=== PATIENT | female | born 2000 | race Caucasian/White ===

== ENCOUNTER 2024-07-27 14:48 | Emergency (ER) | payer BC, MEDICAID, SELFPAY ==
[2024-07-27 14:50] VITALS: BMI 21.0
[2024-07-27 15:05] VITALS: BP 121/79; PULSE 75; RESP 16; TEMP 36.9; O2SAT 97
--- NOTE | 2024-07-27 15:07 | PD.EDFMALE ---
ED Female Urogenital RME/HPI General Chief complaint: Urogenital-Female Stated complaint: R/O UTI: abd. pain, Nausea, frequent urination Time Seen by Provider: 07/27/24 14:53 Source: patient Arrival date/time: 07/27/24 14:48 24-year-old female with no known medical history presents to the emergency room with a chief complaint of burning with urination as well as frequent urination x 3 days Mode of arrival: ambulatory Limitations: no limitations Related Data Previous Rx's ?Medication ?Instructions ?Recorded ferrous sulfate 325 mg (65 mg 325 mg PO QDAY #60 tabs 10/25/21 iron) tablet vitamin#30 30 mg iron-10 1 cap PO DAILY #30 caps 10/25/21 mg iron-folic acid 1 mg-omg3 capsule amoxicillin 875 mg-potassium 1 tab PO Q12H #10 tabs 06/15/22 clavulanate 125 mg tablet ibuprofen 600 mg tablet 600 mg PO Q6H PRN pain #20 tabs 06/15/22 phenazopyridine 100 mg tablet 100 mg PO TID PRN pain 6 doses #30 08/28/23 (Pyridium) tabs nitrofurantoin 100 mg PO Q12H 5 days #10 caps 07/27/24 monohydrate/macrocrystals 100 mg capsule (Macrobid) Allergies Allergy/AdvReac Type Severity Reaction Status Date / Time No Known Allergies Allergy Verified 03/15/24 21:26 Review of Systems Review of Systems Systems Reviewed: All systems reviewed, normal except as documented Constitutional Constitutional: Reports system reviewed and no additional complaints, except as documented, Denies fatigue, Denies fever(s), Denies headache(s) and Denies weakness Eyes Eyes: Reports system reviewed and no additional complaints, except as documented, Denies blurry vision and Denies change in vision ENT Ears, Nose, Mouth, and Throat: Reports system reviewed and no additional complaints, except as documented, Denies otalgia, Denies headache(s), Denies nasal congestion, Denies throat swelling and Denies vertigo Cardiovascular Cardiovascular: Reports system reviewed and no additional complaints, except as documented, Denies chest pain, Denies dyspnea and Denies dyspnea on exertion Respiratory Respiratory: Reports system reviewed and no additional complaints, except as documented, Denies chest congestion, Denies cough, Denies dyspnea, Denies dyspnea on exertion and Denies wheezing Gastrointestinal Gastrointestinal: Reports system reviewed and no additional complaints, except as documented, Denies abdominal pain, Reports cramping, Reports nausea and Denies vomiting Genitourinary Genitourinary: Reports system reviewed and no additional complaints, except as documented Musculoskeletal Musculoskeletal: Reports system reviewed and no additional complaints, except as documented and Denies back pain Integumentary/Breasts Skin/Breast: Reports system reviewed and no additional complaints, except as documented and Denies wounds Neurologic Neurologic: Reports system reviewed and no additional complaints, except as documented, Denies confusion, Denies headache(s), Denies lack of coordination, Denies vertigo and Denies weakness Psychiatric Psychiatric: Reports system reviewed and no additional complaints, except as documented, Denies anxiety, Denies confusion, Denies depression, Denies paranoia, Denies suicidal ideation and Denies tactile hallucinations Endocrine Endocrine: Reports system reviewed and no additional complaints, except as documented and Denies fatigue Hematologic/Lymphatic Hematologic/Lymphatic: Reports system reviewed and no additional complaints, except as documented and Denies lymphadenopathy Allergic/Immunologic Allergic/Immunologic: Reports system reviewed and no additional complaints, except as documented, Denies throat swelling, Denies urticaria and Denies wheezing ED Exam General Limitations: Present no limitations General appearance: Present alert and in no apparent distress Head Head exam: Present atraumatic Eye Eye exam: Present normal appearance, PERRL and EOMI ENT ENT exam: Present normal exam, normal oropharynx and mucous membranes moist Neck Neck exam: Present normal inspection, full ROM and trachea midline Chest Chest inspection: Present normal inspection and symmetric chest wall rise Respiratory Respiratory exam: Present normal lung sounds bilaterally Cardiovascular Cardiovascular exam: Present regular rate, normal rhythm and normal heart sounds Abdominal Exam Abdominal exam: Present soft and normal bowel sounds Abdominal tenderness: Present suprapubic and mild Extremities Exam Extremities exam: Present normal inspection and full ROM Back Exam Back exam: Present normal inspection and full ROM Neurological Exam Neurological exam: Present alert, oriented X3 and CN II-XII intact Psychiatric Psychiatric exam: Present normal affect and normal mood Skin Skin exam: Present warm, dry, intact and normal color Course Quality Measures none Orders Category Date Time Status UA, C/S IF [Urinalysis, C/S if Indicated] Stat Lab 07/27/24 15:14 Completed Vital Signs Vital signs: Vital Signs Temperature 98.4 F 07/27/24 15:05 Pulse Rate 75 07/27/24 15:05 Respiratory Rate 16 07/27/24 15:05 Blood Pressure 121/79 07/27/24 15:05 Pulse Oximetry (%) 97 07/27/24 15:05 Oxygen Delivery Method Room Air 07/27/24 15:05 O2 saturation 97% within normal limits Urogenital - Female MDM Narrative MDM Narrative:: 24-year-old female with no known medical history presents to the emergency room with a chief complaint of burning with urination as well as frequent urination x 3 days Patient is hemodynamically stable and in no apparent distress Physical examination shows some mild cramping to the lower abdominal area. Urinalysis was positive for urinary tract infection Antibiotics are sent to the patient's pharmacy. Patient was discharged and educated to follow-up with primary care provider in the next 24 to 48 hours and return to the emergency room for any evidence of worsening signs or symptoms Patient data External records reviewed:: [facility] previous records Clinical information provided by:: patient Social determinants that could affect healthcare access:: none Patient has the following chronic illnesses:: No chronic illness How is presenting disease/condition affected by chronic disease/condition?: no chronic disease Evaluation data The following diagnostics were reviewed and interpreted by me:: lab results and radiology exam(s) Lab and/or radiology exams considered but not ordered:: Labs and radiology exams considered and ordered Interpretation Summary: N/A Medications / Prescriptions Medications or Prescriptions considered but not ordered:: Medication given Medication administrations:: Medication not given Consultations Consultation(s) initiated? (list below): No Diagnosis Urogenital Female Differential Diagnosis: urinary tract infection, bacterial vaginosis, vaginitis and cystitis Most likely diagnosis given after review of the tests above:: Urinary tract infection Admission Indicated Admission indicated?: not indicated Admission Request Was there a request for admission?: No Disposition Plan Disposition Plan: Discharge Discharge Attestation Discharge Attestation: The patient and all family members were given an opportunity to ask questions and understood the discharge instructions. Discharge instructions specifically effects, indications for sooner follow up or return to the emergency department, and the expected course of current diagnosis. Patient condition: Stable Discharge Plan Plan Patient Disposition: HOME (Self Care) Disposition Comment: Stable Prescriptions/Referrals Prescriptions/Med Rec: New nitrofurantoin monohyd/m-cryst [Macrobid] 100 mg capsule 100 mg PO Q12H 5 Days Qty: 10 0RF Rx Instructions: must administer with a meal/food No Action ferrous sulfate 325 mg (65 mg iron) tablet 325 mg PO QDAY Qty: 60 0RF PNV #[id number] acid-[id number] 30 mg iron-10 mg iron-1 mg capsule 1 cap PO DAILY Qty: 30 0RF amoxicillin-pot clavulanate 875-125 mg tablet 1 tab PO Q12H Qty: 10 0RF ibuprofen 600 mg tablet 600 mg PO Q6H PRN (Reason: pain) Qty: 20 0RF phenazopyridine [Pyridium] 100 mg tablet 100 mg PO TID PRN (Reason: pain) Qty: 30 0RF Referrals: No Primary/Family,Physician [Primary Care Provider] - In 1 week Problem List Clinical Impression: Urinary tract infection Patient/Caregiver Discharge Instructions Education Materials: ED CYSTITIS Female Adult Additional Instructions: Please follow-up with your primary care provider in the next 24 to 48 hours Your urinalysis was positive for urinary tract infection. Antibiotics are sent to your pharmacy please pick them up and take them as indicated. For any evidence of worsening signs or symptoms return to the emergency room immediately Print Language: [place] Islander Stand Alone Forms: Barbra Award Info., Work/School Release, Patient Portal Info Letter PA/LUZ ELENA Supervising Physician SERA/LUZ ELENA Supervising Physician: Dr. Swift
[2024-07-27 15:23] LABS: Collection Type, Urine Clean Catch
[2024-07-27 15:46] LABS: Bacteria,Urine 4+; Bilirubin,Urine Negative (Negative); Blood,Urine Trace (Negative); Clarity,Urine Turbid (Clear/Hazy); Color,Urine Yellow (Lt Yel-Yel); Culture Indicated,Urine Contaminated; Glucose, Urine Negative (Negative); Ketones,Urine Negative (Negative); Leukocyte Esterase,Urine Positive (Negative); Nitrite,Urine Negative (Negative); Protein,Urine Trace (Neg - Trace); RBC,Urine 8 /hpf (0-3); Specific Gravity,Urine 1.026 (1.001-1.035); Squamous Epithelial Cell,Urine 27 /hpf (0-5); Urobilinogen,Urine Negative mg/dL (0.0-1.0); WBC,Urine 27 /hpf (0-5)
== END 2024-07-27 16:35 | disposition home or self-care (01) ==
PROVIDERS: Nurse Practitioner Family; Emergency Provider Emergency Medicine
DX: N39.0 Urinary tract infection, site not specified (principal)
CPT/HCPCS: 81001; 99283

== ENCOUNTER 2024-08-03 16:36 | Emergency (ER) | payer BC, MEDICAID, SELFPAY ==
[2024-08-03] VITALS (7 sets, daily range): BP systolic 117–147; BP diastolic 67–89; PULSE 94–120; RESP 12–22; TEMP 36.6–37.2; O2SAT 100
--- NOTE | 2024-08-03 17:12 | EKG_ITS ---
[facility] Test Date: 2024-08-03 Pat Name: IKER NAQVI Department: Room: - Gender: Female Weight Shifter: : 2000 Requested By: Valerio Chapman Order Number: [id number] Reading MD: Valerio Chapman Measurements Intervals [place] Rate: 112 P: 83 NC: 138 QRS: 58 QRSD: 82 T: 56 QT: 320 QTc: 437 Interpretive Statements SINUS TACHYCARDIA LOW QRS VOLTAGE IN PRECORDIAL LEADS [QRS DEFLECTION < 1.0 mV IN CHEST LEADS] ABNORMAL RHYTHM ECG No previous ECG available for comparison /store/S0/[id number]
--- NOTE | 2024-08-03 17:20 | PD.EDRME ---
Rapid Medical Screening Exam RME Arrival date/time: 08/03/24 16:36 24-year-old female with a history of iron deficiency anemia presents to the emergency room with a chief complaint of dizziness, palpitations x 1 day I have greeted and performed a focused initial assessment of this patient. A comprehensive ED assessment and evaluation of the patient, analysis of all test results, and completion of the medical decision making process will be conducted by additional ED providers. Chief Complaint: Dizziness Time Seen by Provider: 08/03/24 16:56 Vital signs: Vital Signs Temperature 98.5 F 08/03/24 17:01 Pulse Rate 120 H 08/03/24 17:01 Respiratory Rate 18 08/03/24 17:01 Blood Pressure 143/80 H 08/03/24 17:01 Pulse Oximetry (%) 100 08/03/24 17:01 Oxygen Delivery Method Room Air 08/03/24 17:01 Vital signs reviewed by provider: Yes
[2024-08-03 17:55] LABS: Basophils # (Auto) 0.1 Thou/mm3 (0.0-0.2); Basophils % (Auto) 1 % (0-2.5); Eosinophils % (Auto) 0 % (0-10); Hematocrit 25.4 % (36.0-46.0); Immature Granulocytes % (Auto) 0 % (0-0); Immature Granulocytes Auto 0.04 Thou/mm3 (0.00-0.00); Lymphocytes # (Auto) 1.5 Thou/mm3 (1.0-4.8); Lymphocytes % (Auto) 12 % (10-50); Mean Corpuscular Hemoglobin 15.5 pg (25.0-35.0); Mean Corpuscular Volume 60 fL (80-100); Monocytes # (Auto) 0.3 Thou/mm3 (0.0-0.8); Monocytes % (Auto) 3 % (0-12); Neutrophils # (Auto) 10.5 Thou/mm3 (1.8-7.7); Neutrophils % (Auto) 84 % (37-80); Nucleated Red Blood Cell % 0 /100 WBC (0); Platelet Count 469 Thou/mm3 (140-440); RDW Standard Deviation 45.3 fL (36.4-46.3); Red Blood Count 4.26 Miln/mm3 (4.00-5.20); White Blood Count 12.4 Thou/mm3 (3.6-11.0)
[2024-08-03 17:56] LABS: Hemoglobin 6.6 g/dL (12.0-16.0)
[2024-08-03 18:07] LABS: Partial Thromboplastin Time 22.4 Seconds (22.0-36.0); Prothrombin Time 11.4 Seconds (9.0-12.2)
[2024-08-03 18:14] LABS: Path Review Blood Smear Sent to Pathologist
[2024-08-03 18:22] LABS: Alanine Aminotransferase 10 U/L (10-49); Albumin, Serum 5.2 gm/dL (3.5-5.0); Albumin/Globulin Ratio 1.8 (1.2-2.2); Alkaline Phosphatase 48 U/L (46-116); Anion Gap 11 (7-16); Aspartate Amino Transferase 14 U/L (0-34); BUN/Creatinine Ratio 17 Ratio (12-20); Bilirubin,Total 0.5 mg/dL (0.3-1.2); Blood Urea Nitrogen 10 mg/dL (9-23); Calcium 9.8 mg/dL (8.3-10.6); Calcium (Corrected) 9.8 mg/dL (8.5-10.1); Carbon Dioxide 23.5 mMol/L (20.0-31.0); Chloride 105 mMol/L (98-107); Creatinine (Component) 0.6 mg/dL (0.6-1.3); Globulin 2.9 gm/dL (2.3-3.5); Glucose 98 mg/dL (74-106); Osmolality,Calculated 276 (275-295); Potassium 3.5 mMol/L (3.4-5.1); Sodium 139 mMol/L (136-145); Total Protein 8.1 gm/dL (5.7-8.2); Troponin I < 0.002 ng/mL (0.0-0.045); eGFR > 60 See Note
[2024-08-03 18:43] LABS: B-Type Natriuretic Peptide < 20 pg/mL (0-100)
--- NOTE | 2024-08-03 23:40 | PD.EDDIZZY ---
ED Dizzyness RME/HPI General Chief Complaint: Dizziness Stated Complaint: DIZZY, NAUSEA, BLACKED OUT, BOYER X 2 WKS, HX ANEMIA Time Seen by Provider: 08/03/24 16:56 Arrival date/time: 08/03/24 16:36 RME / HPI RME / HPI Narrative: 08/03/24 16:36 24-year-old female with a history of iron deficiency anemia presents to the emergency room with a chief complaint of dizziness, palpitations x 1 day I have greeted and performed a focused initial assessment of this patient. A comprehensive ED assessment and evaluation of the patient, analysis of all test results, and completion of the medical decision making process will be conducted by additional ED providers. -------- Dr. Lindsey?s Main ED Evaluation: 24yo female with a history of anemia presents to the ED for a chief complaint of dizziness. Patient states she started having nausea after she started taking the nitrofurantoin she was given for a UTI 1 week ago. She states she started her period 3 days ago and started having N/V and dizziness. She states she felt like she was going to pass out today, so she came in for evaluation. She denies any fever, chills, UTI symptoms, sweating or any other associated symptoms. Patient states she has a history of heavy periods. No known allergies. Related Data Previous Rx's ?Medication ?Instructions ?Recorded ferrous sulfate 325 mg (65 mg 325 mg PO QDAY #60 tabs 10/25/21 iron) tablet vitamin#30 30 mg iron-10 1 cap PO DAILY #30 caps 10/25/21 mg iron-folic acid 1 mg-omg3 capsule amoxicillin 875 mg-potassium 1 tab PO Q12H #10 tabs 06/15/22 clavulanate 125 mg tablet ibuprofen 600 mg tablet 600 mg PO Q6H PRN pain #20 tabs 06/15/22 phenazopyridine 100 mg tablet 100 mg PO TID PRN pain 6 doses #30 08/28/23 (Pyridium) tabs Allergies Allergy/AdvReac Type Severity Reaction Status Date / Time No Known Allergies Allergy Verified 08/03/24 16:40 Review of Systems Review of Systems Systems Reviewed: All systems reviewed, normal except as documented Past Medical History Past Medical History NEUROLOGIC: Negative Neurological Disorders or Seizures CARDIAC: Positive Cardiac Disorders and Hypertension ([place] boarderline); Negative Congestive Heart Failure RESPIRATORY: Negative Chronic Obstructive Pulmonary Disease (COPD) GASTROINTESTINAL: Negative Gastrointestinal Disorders GENITOURINARY: Negative Genitourinary Disorders or Renal Disease MUSCULOSKELETAL: Negative Musculoskeletal Disorders ENDOCRINE: Negative Endocrine Disorders, Diabetes Mellitus Type 1 or Diabetes Mellitus Type 2 HEMATOLOGIC: Positive Blood Disorders and Anemia; Negative Clotting Problems PSYCHO/SOCIAL: Positive Anxiety OTHER HISTORY: Positive Blood Transfusions (x1 2020 dizziness. H&H low); Negative Autoimmune Disease, Blood Transfusion Reaction, Anesthesia Reactions, Organ Transplant, Chemotherapy, Hyperbaric Therapy, MRSA, VRSA, Vancomycin-Resistant Enterococci or Cancer Family History FAMILY HISTORY: Negative Family Psychiatric Problems, Family Respiratory Disorders, Family Cardiac Disorders, Family Gastrointestinal Problems, Family Cancer, Family Surgery or Family Anesthesia Reaction Surgical History SURGICAL: Negative Organ Transplant Social History SMOKING STATUS: Never smoker ED Exam Narrative Physical exam: GENERAL APPEARANCE: alert and oriented x 4, well-developed, well-nourished, no acute distress VITALS: All vitals were reviewed and the pulse ox is 100% on room air, which is normal according to my interpretation. HEENT: Normocephalic, atraumatic; pupils equal, round, reactive to light; EOMI; mucous membranes pink, moist; oropharynx clear NECK: Supple LUNGS: CTABL; no wheezes, no rales, no rhonchi HEART: Regular rate, regular rhythm; normal S1, S2; no murmurs ABDOMEN: non distended; normal BS; soft, no tenderness, no guarding, no rebound; no masses, no organomegaly, no hernia BACK: no CVA tenderness EXTREMITIES: atraumatic; no edema NEUROLOGIC: awake; alert and oriented x4; cranial nerves II-XII grossly intact; no focal sensory or motor deficits PSYCHIATRIC: appropriate mood and affect SKIN: warm, dry, pale ; no rashes Course Course Course Narrative: The patient was placed in ED observation care at 08/04/24 at 0115 hours. The patient was placed in ED observation care because of pending blood transfusion. The patients past medical history, social history, and family history were reviewed. 0419: Patient states she feels significantly better after receiving 2U PRBCs and feels comfortable going home. 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 START 00 Care 08/03/24 21:44 Completed Continuous Pulse Oximetry NOW Care 08/03/24 21:44 Completed EKG (ED ONLY) *Do not use* NOW Care 08/03/24 17:12 Completed IV [Insert IV] NOW Care 08/03/24 21:44 Completed Transfuse,blood/blood products NOW Care 08/03/24 21:43 Completed EKG (ED Only) Stat Exams 08/03/24 17:12 Draft BNP [B-Type Natriuretic Peptide] Stat Lab 08/03/24 17:35 Completed CBC Stat Lab 08/03/24 17:35 Completed CMP [Comprehensive Metabolic Panel] Stat Lab 08/03/24 17:35 Completed PT [Prothrombin Time with INR] Stat Lab 08/03/24 17:35 Completed PTT [Partial Thromboplastin Time] Stat Lab 08/03/24 17:35 Completed Path Review Blood Smear Stat Lab 08/03/24 17:35 Completed Troponin I Stat Lab 08/03/24 17:35 Completed Type and Screen Stat Lab 08/03/24 17:35 Completed prbc [Red Blood Cells] Stat Lab 08/03/24 17:35 Completed Reevaluation(s) Reevaluation #1: Patient is currently receiving her second unit of blood and appears better compared to her initial evaluation. Time: 02:59 Vital Signs Vital signs: Vital Signs Temperature 98.5 F 08/03/24 17:01 Pulse Rate 120 H 08/03/24 17:01 Respiratory Rate 18 08/03/24 17:01 Blood Pressure 143/80 H 08/03/24 17:01 Pulse Oximetry (%) 100 08/03/24 17:01 Oxygen Delivery Method Room Air 08/03/24 17:01 Dizziness MDM Narrative MDM Narrative:: Scribe Attestation: 08/03/24 Lala Llanos am scribing for and in the presence of Dr. Lindsey. Patient data External records reviewed:: [facility] previous records (Per chart review, patient was seen here on 07/27/24 for a UTI.) Clinical information provided by:: patient Social determinants that could affect healthcare access:: none Patient has the following chronic illnesses:: none How is presenting disease/condition affected by chronic disease/condition?: no chronic disease Evaluation data The following diagnostics were reviewed and interpreted by me:: lab results and EKG tracing(s) Lab and/or radiology exams considered but not ordered:: none Interpretation Summary: WBC count is elevated at 12.4, HnH is low at 6.6/25.4, PT and INR are normal, PTT is normal, CMP is normal, Troponin is normal, BNP is normal, according to my interpretation. EKG done at 1723, sinus tachycardia, rate of 112, normal axis, no ectopy, no acute ischemia, according to my interpretation. Medications / Prescriptions Medications or Prescriptions considered but not ordered:: none Medication administrations:: 2U PRBCs Consultations Consultation(s) initiated? (list below): No Diagnosis Dizziness Differential Diagnosis: other (anemia due to blood loss, anemia due to blood dyscrasia, hemolytic anemia, sideroblastic anemia) Most likely diagnosis given after review of the tests above:: see clinical impression below Admission Indicated Admission indicated?: not indicated Admission Request Was there a request for admission?: No Disposition Plan Disposition Plan: Discharge Discharge Attestation Discharge Attestation: The patient and all family members were given an opportunity to ask questions and understood the discharge instructions. Discharge instructions specifically effects, indications for sooner follow up or return to the emergency department, and the expected course of current diagnosis. Patient condition: Stable Discharge Plan Plan Patient Disposition: HOME (Self Care) Disposition Comment: stable for discharge home Patient condition on transfer: Stable Prescriptions/Referrals Prescriptions/Med Rec: No Action ferrous sulfate 325 mg (65 mg iron) tablet 325 mg PO QDAY Qty: 60 0RF PNV #[id number] acid-omega3 30 mg iron-10 mg iron-1 mg capsule 1 cap PO DAILY Qty: 30 0RF amoxicillin-pot clavulanate 875-125 mg tablet 1 tab PO Q12H Qty: 10 0RF ibuprofen 600 mg tablet 600 mg PO Q6H PRN (Reason: pain) Qty: 20 0RF phenazopyridine [Pyridium] 100 mg tablet 100 mg PO TID PRN (Reason: pain) Qty: 30 0RF Referrals: Pending Sale To [facility] [Outside] - In 1 week Romario Herrera MD [Physician] - In 1 week Problem List Clinical Impression: Anemia, Menorrhagia Patient/Caregiver Discharge Instructions Discharge Activity: activity as tolerated Education Materials: Anemia, ED Heavy Menstrual Bleeding Additional Instructions: Please return to the emergency department if you have any worsening or any further medical problems and we will help you. Otherwise you should follow-up with primary care doctor within the next several days Please follow-up with your cooking chef within the next several days. Please call the office today and make an appointment Today your hemoglobin was 6.6. You received 2 units of packed red blood cells here in the emergency department. Print Language: Chinese Stand Alone Forms: Barbra Award Info., Patient Portal Info Letter
[2024-08-04 01:25] VITALS: BP 115/73; PULSE 103; RESP 18; TEMP 36.8; O2SAT 100
[2024-08-04 01:55] VITALS: BP 107/66; PULSE 89; RESP 17; TEMP 36.9; O2SAT 100
[2024-08-04 02:10] VITALS: BP 106/60; PULSE 90; RESP 18; TEMP 36.9; O2SAT 99
[2024-08-04 03:45] VITALS: BP 108/69; PULSE 81; RESP 16; TEMP 36.9; O2SAT 100
[2024-08-04 04:26] VITALS: BP 115/61; PULSE 80; RESP 18; TEMP 36.8; O2SAT 98
== END 2024-08-04 04:56 | disposition home or self-care (01) ==
PROVIDERS: Nurse Practitioner Family; Emergency Provider Emergency Medicine; PCP Physician Assistant Medical
DX: D64.9 Anemia, unspecified (principal); N92.0 Excessive and frequent menstruation with regular cycle; R00.0 Tachycardia, unspecified
CPT/HCPCS: 36415; 36430; 80053; 83880; 84484; 85025; 85610; 85730; 86850; 86900; 86901; 86923; 93005; 99285; P9016

== ENCOUNTER 2024-11-28 13:22 | Emergency (ER) | payer BC, MEDICAID, SELFPAY ==
[2024-11-28 13:26] VITALS: BMI 21.7
[2024-11-28 13:34] VITALS: BP 130/69; PULSE 102; RESP 18; TEMP 37.1; O2SAT 99
--- NOTE | 2024-11-28 13:44 | EKG_ITS ---
[facility] Test Date: 2024-11-28 Pat Name: IKER NAQVI Department: Room: - Gender: Female Trader: : 2000 Requested By: Baldomero Khan (HARJIT) Order Number: [id number] Reading MD: Baldomero Khan (SETTLEMENT AGENT) Measurements Intervals [place] Rate: 105 P: 66 AL: 150 QRS: 24 QRSD: 97 T: 54 QT: 321 QTc: 425 Interpretive Statements SINUS TACHYCARDIA LOW QRS VOLTAGE IN PRECORDIAL LEADS [QRS DEFLECTION < 1.0 mV IN CHEST LEADS] ABNORMAL RHYTHM ECG Compared to ECG 08/03/2024 17:23:07 No significant changes /store/S0/[id number]/[id number].pdf
--- NOTE | 2024-11-28 13:44 | XR_ITS ---
Examination: PA lateral chest 2 views Technique: Upright PA lateral chest 2 views Date and time: November 28, 2024 1405 hrs. Indications: Chest pain beginning 2 weeks ago. Findings: Normal heart size. Lungs are clear. Minimal upper thoracic dextroscoliosis. Impression: No active disease.
--- NOTE | 2024-11-28 13:44 | PD.EDRME ---
Rapid Medical Screening Exam RME Arrival date/time: 11/28/24 13:22 24-year-old female presents to the emergency department today for complaints of generalized fatigue and dizziness. Chief Complaint: Dizziness Time Seen by Provider: 11/28/24 13:41 Vital signs: Vital Signs Temperature 98.7 F 11/28/24 13:34 Pulse Rate 102 H 11/28/24 13:34 Respiratory Rate 18 11/28/24 13:34 Blood Pressure 130/69 11/28/24 13:34 Pulse Oximetry (%) 99 11/28/24 13:34 Oxygen Delivery Method Room Air 11/28/24 13:34
[2024-11-28 14:39] LABS: Basophils # (Auto) 0.1 Thou/mm3 (0.0-0.2); Basophils % (Auto) 1 % (0-2.5); Eosinophils # (Auto) 0.0 Thou/mm3 (0.0-0.5); Eosinophils % (Auto) 0 % (0-10); Hematocrit 28.5 % (36.0-46.0); Immature Granulocytes Auto 0.02 Thou/mm3 (0.00-0.00); Lymphocytes # (Auto) 1.9 Thou/mm3 (1.0-4.8); Lymphocytes % (Auto) 27 % (10-50); Mean Corpuscular HGB Conc 30.5 g/dl (31.0-37.0); Mean Corpuscular Hemoglobin 21.1 pg (25.0-35.0); Mean Corpuscular Volume 69 fL (80-100); Monocytes # (Auto) 0.4 Thou/mm3 (0.0-0.8); Monocytes % (Auto) 5 % (0-12); Neutrophils # (Auto) 4.6 Thou/mm3 (1.8-7.7); Neutrophils % (Auto) 66 % (37-80); Nucleated Red Blood Cell # 0.00 Thou/mm3 (0.00-0.00); Nucleated Red Blood Cell % 0 /100 WBC (0); Platelet Count 423 Thou/mm3 (140-440); RDW Standard Deviation 39.8 fL (36.4-46.3); Red Blood Count 4.12 Miln/mm3 (4.00-5.20); White Blood Count 7.1 Thou/mm3 (3.6-11.0)
[2024-11-28 14:45] LABS: Hemoglobin 8.7 g/dL (12.0-16.0)
[2024-11-28 15:19] LABS: Alanine Aminotransferase 11 U/L (10-49); Albumin, Serum 4.9 gm/dL (3.5-5.0); Albumin/Globulin Ratio 1.8 (1.2-2.2); Alkaline Phosphatase 44 U/L (46-116); Anion Gap 9 (7-16); Aspartate Amino Transferase 15 U/L (0-34); BUN/Creatinine Ratio 10 Ratio (12-20); Bilirubin,Total 0.4 mg/dL (0.3-1.2); Blood Urea Nitrogen 8 mg/dL (9-23); Calcium 9.9 mg/dL (8.3-10.6); Calcium (Corrected) 9.9 mg/dL (8.5-10.1); Carbon Dioxide 25.8 mMol/L (20.0-31.0); Chloride 107 mMol/L (98-107); Creatinine (Component) 0.8 mg/dL (0.6-1.3); Estimated Creatinine Clearance 82.5 mL/min (>60); Globulin 2.7 gm/dL (2.3-3.5); Glucose 100 mg/dL (74-106); Osmolality,Calculated 281 (275-295); Potassium 3.7 mMol/L (3.4-5.1); Sodium 142 mMol/L (136-145); Total Protein 7.6 gm/dL (5.7-8.2); Troponin I < 0.002 ng/mL (0.0-0.045); eGFR > 60 See Note
[2024-11-28 15:25] LABS: Path Review Blood Smear Sent to Pathologist
[2024-11-28 15:51] LABS: HCG Qualitative,Urine Negative
--- NOTE | 2024-11-28 16:35 | PC.NURSE ---
Patient told ED staff she sis not want CT scan and that she was leaving, patient walked out of ED lobby at 1630.
== END 2024-11-28 16:37 | disposition left against medical advice (07) ==
LOC: SERX 14:31
PROVIDERS: Nurse Practitioner Primary Care; Emergency Provider Family Medicine; PCP Family Medicine
DX: R42 Dizziness and giddiness (principal); R53.83 Other fatigue; R07.9 Chest pain, unspecified; R00.0 Tachycardia, unspecified; Z53.29 Procedure and treatment not carried out because of patient's decision for other reasons
CPT/HCPCS: 36415; 71046; 80053; 81025; 84484; 85025; 86850; 86900; 86901; 93005; 99283

== ENCOUNTER 2025-03-23 07:48 | Outpatient (RCR) | payer MEDICAID, SELFPAY | END 2025-04-18 23:59 | disposition home or self-care (01) | LOC: SCTC 07:48 | PROVIDERS: PCP Family Medicine; Referring Provider Family Medicine; Visit Provider Nurse Practitioner Family | DX: D50.9 Iron deficiency anemia, unspecified (principal); N92.0 Excessive and frequent menstruation with regular cycle; Z97.5 Presence of (intrauterine) contraceptive device | CPT/HCPCS: 99213; G0463 ==

== ENCOUNTER 2025-04-27 11:32 | Outpatient (RCR) | payer MEDICAID, SELFPAY | END 2025-05-19 23:59 | disposition home or self-care (01) | LOC: SCTC 11:32 | PROVIDERS: PCP Family Medicine; Referring Provider Family Medicine; Visit Provider Nurse Practitioner Family | DX: D50.9 Iron deficiency anemia, unspecified (principal); N92.0 Excessive and frequent menstruation with regular cycle | CPT/HCPCS: 99212; G0463 ==